=== PATIENT | female | born 1990 | race Two or more races ===

== ENCOUNTER 2022-02-27 02:15 | Emergency (ER) | payer OTHER ==
[~2022-02-27] VITALS: Ht 160 cm; Wt 56.7 kg
--- NOTE | 2022-02-27 02:50 | NUR ---
BIBS FOR C/O LOWER ABD PAIN / CRAMP. PAIN SCALED 7/10. LMP: 2 WEEKS AGO. - HEMATURIA OR DYSURIA, - N/V. PT A/OX4. TOLERATING R/A WELL WITH NO SOB. CONNECTED PT TO POX AND MONITOR.
--- NOTE | 2022-02-27 03:04 | NUR ---
URINE COLLECTED AND SENT TO LAB
--- NOTE | 2022-02-27 03:23 | NUR ---
PT SIGNED PREGANCY WAIVER FORM; VERBALIZED UNDERSTANDING
[2022-02-27] MEDS ORDERED: IV NS 0.9% 500 ML BAG IV ONE (03:30)
--- NOTE | 2022-02-27 03:33 | NUR ---
PT TAKEN TO CT VIA [facility]
[2022-02-27 03:38] LABS: BASOPHILS % (AUTO) 0.2 % (0.0-2.0); EOSINOPHILS % (AUTO) 0.3 % (0.0-6.0); HEMATOCRIT 41 % (33-45); HEMOGLOBIN 14.2 g/dL (11.5-14.8); LYMPHOCYTES % (AUTO) 9.5 % (20.0-44.0); MEAN CORPUSCULAR HGB CONC 34 g/dl (31.0-36.0); MEAN CORPUSCULAR VOLUME 95 fL (82-100); MONOCYTES # (AUTO) 0.4 K/uL (0.1-1.30); NEUTROPHILS # (AUTO) 8.7 K/uL (1.8-8.9); PLATELET COUNT (AUTO) 239 K/uL (150-450); RED BLOOD CELL COUNT(AUTO) 4.35 MIL/uL (4.0-5.2); WHITE BLOOD COUNT (AUTO) 10.1 K/uL (4.3-11.0)
--- NOTE | 2022-02-27 03:43 | NUR ---
PT RETURNED TO ER BED [address]
--- NOTE | 2022-02-27 03:44 | NUR ---
US AT PT'S BEDSIDE
[2022-02-27 03:52] LABS: ALBUMIN 3.7 g/dL (3.4-5.0); BILIRUBIN,DIRECT 0.3 mg/dL (0.0-0.2); BILIRUBIN,TOTAL 1.2 mg/dL (0.2-1.0); CREATININE 0.9 mg/dL (0.6-1.3); POTASSIUM 3.1 mmol/L (3.5-5.1); TOTAL PROTEIN, SERUM 8.1 g/dL (6.4-8.2)
[2022-02-27] MEDS ORDERED: MORPHINE SULFATE INJ 2 MG/ML DISP.SYRIN ONE (03:56)
[2022-02-27 03:58] LABS: BILIRUBIN,URINE NEGATIVE (NEGATIVE); COLOR,URINE YELLOW (YELLOW); LEUKOCYTE ESTERASE ,URINE NEGATIVE (NEGATIVE); NITRITE, URINE NEGATIVE (NEGATIVE); PROTEIN,URINE 100 mg/dl (NEGATIVE); UGLUCOSE NEGATIVE (NEGATIVE)
[2022-02-27] MEDS ORDERED: MORPHINE SULFATE INJ 2 MG/ML DISP.SYRIN IV ONE (04:00)
[2022-02-27 04:02] LABS: PH,URINE >9.0 (5.0-8.0)
[2022-02-27] MEDS ORDERED: NAPR-1192 PO (05:44)
--- NOTE | 2022-02-27 05:57 | NUR ---
Patient discharged to home in stable condition. RX Written and verbal after care instructions given. Patient verbalizes understanding of instruction. IV removed. Catheter intact and site benign. Pressure and 4x4 applied to site. No bleeding noted. pt ambulatory with a steady gait
[2022-02-27 05:58] VITALS: BP 112/73
== END 2022-02-27 05:58 | disposition home or self-care (01) ==
LOC: ER 02:18
DX: D25.0 Submucous leiomyoma of uterus (principal); R10.2 Pelvic and perineal pain; Z79.1 Long term (current) use of non-steroidal anti-inflammatories (NSAID)
CPT/HCPCS: 99284; 74176; 96374; 76856; 85025; 80048; 87086; 83690; 80076; 84703; 81003; 36415; 85730; J7040; J2270